=== PATIENT | male | born 1985 | race Caucasian/White ===

== ENCOUNTER 2016-12-13 15:46 | Outpatient (CLI) | payer MEDICARE, MEDICAID ==
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
== END 2016-12-13 15:47 | disposition home or self-care (01) ==
LOC: MRI 15:46
PROVIDERS: ATTEND Physical Medicine & Rehabilitation
DX: M47.22 Other spondylosis with radiculopathy, cervical region (principal); M43.16 Spondylolisthesis, lumbar region; M51.27 Other intervertebral disc displacement, lumbosacral region; M62.81 Muscle weakness (generalized)
CPT/HCPCS: 72141; 72148

== ENCOUNTER 2017-04-18 15:09 | Outpatient (CLI) | payer MEDICARE, MEDICAID ==
--- NOTE | 2017-04-18 18:08 | MRI ---
MRI OF THE LEFT FOREFOOT: Date: 04/18/17 PROVIDED CLINICAL HISTORY: Metatarsalgia, unable to extend toes. FINDINGS: Regional marrow signal appears normal. Alignment appears anatomic. Joint spaces appear preserved. No regional joint effusion is evident. There is a somewhat focally thickened and inhomogeneous appearance to the extensor digitorum longus t endon proximally as it overlies the navicular. The tendon is less well visualized from this point to the proximal metarsal region. This may reflect partial tearing or complete tear with granulation ti ssue. Intact fibers of the extensor digitorum longus tendon are seen from the metatarsals distally to the digital insertions. The extensor hallicus longus and visualized tibials anterior tendons appear intact. The plantar flexor tendons appear normal. The MTP joint capsules appear intact. No evidence for Duval's neuroma. The courses of the regional major neurovascular structures appear u nremarkable. IMPRESSION: Focally thickened and inhomogeneous appearance to a portion of the proximal extensor digitorum longus tendon medially which may reflect partial tearing or complete tear with granulation tissue. This is incompletely visualized proximally. Consider correlation with MR of the hindfoot as indicated. POS: [facility]
== END 2017-04-18 15:10 | disposition home or self-care (01) ==
LOC: MRI 15:09
PROVIDERS: ATTEND Orthopaedic Surgery
DX: M77.42 Metatarsalgia, left foot (principal)

== ENCOUNTER 2017-11-01 13:28 | Outpatient (CLI) | payer MEDICARE, MEDICAID | END 2017-11-01 13:29 | disposition home or self-care (01) | LOC: BICRAD 13:28 | PROVIDERS: ATTEND Internal Medicine | DX: M25.552 Pain in left hip (principal); M16.12 Unilateral primary osteoarthritis, left hip ==